=== PATIENT | female | born 1990 | race Caucasian/White ===

== ENCOUNTER → 2016-11-15 | Outpatient (CLI) | payer MEDICAID ==
--- NOTE | 2016-11-15 17:25 | DX ---
Right wrist series 4 views 1650 hours. History: Fell down stairs yesterday with persistent right wrist pain. Findings: There is deformity of the distal ulna at the radioulnar junction that could be from remote trauma. There is subsequent negative ulnar variance. There also appears to be some relative compressi on of the lateral aspect of the lunate as well as subchondral cyst within the lunate that also is pro bably from remote trauma. No acute fractures seen about the right wrist. Impression: 1. No acute osseous abnormality seen about the right wrist. 2. Changes presumably related to remote trauma of the distal ulna at the radial ulnar junction as wel l as associated with the lunate.
== END ==
LOC: CIMAGING 16:33
PROVIDERS: ATTEND Family Medicine
DX: S69.91XA Unspecified injury of right wrist, hand and finger(s), initial encounter (principal)
CPT/HCPCS: 73110-PO

== ENCOUNTER → 2017-12-28 | Outpatient (CLI) | payer MEDICAID | LOC: CIMAGING 18:39 | PROVIDERS: ATTEND Family Medicine | DX: M25.551 Pain in right hip (principal); M25.552 Pain in left hip; M54.9 Dorsalgia, unspecified | CPT/HCPCS: 73521-PO ==